=== PATIENT | female | born 1990 | race Caucasian/White ===

== ENCOUNTER → 2018-09-08 | Emergency (ER) | payer BC ==
[~2018-09-08] MED LIST: Acetaminophen/Codeine 30-300mg Tablet ONE; Amoxicillin/Potassium Clav 875 MG TAB ONE; Ondansetron ODT 4 MG TAB ONE
--- NOTE | 2018-09-08 22:26 | CT ---
Exam: Head CT without contrast HISTORY: Pain. Trauma. COMPARISON: none FINDINGS: Hemorrhage: No intraparenchymal hemorrhage or extra-axial hematoma. Brain parenchyma: Cortical warren-white matter differentiation is preserved. No mass effect or midline shift. Basilar cisterns are patent. Ventricular system: Ventricles and sulci are patent and symmetric. Calvarium: Intact. Sinuses and mastoid air cells: Adequate aeration. IMPRESSION: No acute intracranial process.
--- NOTE | 2018-09-08 22:26 | CT ---
Exam: Noncontrast facial bone CT HISTORY: Pain. Trauma. FINDINGS: Visualized brain parenchyma is unremarkable. Bilateral ocular lenses are appropriately located. Both globes are intact. Retrobulbar fat is preserv ed. Symmetric attenuation of the optic nerves and ocular rectus. Visualized aerodigestive tract is patent. Limited evaluation due to dental amalgam artifact. Adequate aeration visualized mastoid air cells, frontal sinuses and ethmoid air cells. Bilateral mild maxillary sinus disease. Coronal images demonstrate patent bilateral ostiomeatal complexes. Osseous margins of the orbits and paranasal sinuses are intact. Mandibular condyles are appropriately located. Maxilla and mandible are intact. Pterygoid plates are intact. Slightly angulated left nasal bone fracture with associated overlying soft tissue swelling. Impression: Left nasal bone fracture with associated soft tissue swelling. Transcribed Date/Time: 09/08/2018 10:35 PM
== END ==
LOC: MADERS 21:35
DX: S06.0X1A Concussion with loss of consciousness of 30 minutes or less, initial encounter (principal); S02.2XXA Fracture of nasal bones, initial encounter for closed fracture; W55.12XA Struck by horse, initial encounter
CPT/HCPCS: 70450; 70486; Q0162